=== PATIENT | male | born 1970 | race Caucasian/White ===

== ENCOUNTER 2019-03-03 10:01 | Day surgery (SDC) | payer OTHER ==
[2019-03-03] MEDS ORDERED: fentaNYL 250 MCG/5 ML VIAL IVP ONE (10:02)
[2019-03-03] MEDS ORDERED: MIDAZOLAM 2 MG/2 ML VIAL IVP ONE (10:02)
[2019-03-03] MEDS ORDERED: LACTATED RINGERS 1,000 ML IV ONE (10:13)
[2019-03-03 13:19] VITALS: BP 112/77
== END 2019-03-03 10:02 | disposition home or self-care (01) ==
LOC: SDS 10:01
PROVIDERS: ATTEND Internal Medicine Gastroenterology
PROC: 0DBN8ZZ Excision of Sigmoid Colon, Via Natural or Artificial Opening Endoscopic (ICD-10-PCS; 2019-03-03)
PROC: 0DBP8ZZ Excision of Rectum, Via Natural or Artificial Opening Endoscopic (ICD-10-PCS; principal; 2019-03-03 11:00)
DX: Z12.11 Encounter for screening for malignant neoplasm of colon (principal); D12.5 Benign neoplasm of sigmoid colon; K62.1 Rectal polyp; E66.9 Obesity, unspecified; Z68.33 Body mass index [BMI] 33.0-33.9, adult
CPT/HCPCS: 45380; J3010; J7120